=== PATIENT | male | born 1945 | race Caucasian/White ===

== ENCOUNTER 2019-07-26 18:53 | Emergency (ER) | payer MEDICARE, OTHER ==
[~2019-07-26] VITALS: Wt 95.5 kg
[2019-07-26 18:53] VITALS: BP 59/41
[~2019-07-26 18:53] MED LIST: DIOVAN160 MG PO; HCTZ
[2019-07-26 19:20] LABS: BASO # 0.1 (0.0-0.2); BASO % 0.4 % (0.0-2.0); EOS % 0.1 % (0-4.0); GRAN # 10.3 (1.4-6.5); HEMOGLOBIN 16.2 g/dl (13.5-18.0); LYMPH # 2.3 (1.2-3.4); LYMPH % 16.9 % (20.0-51.0); MEAN CELL VOLUME 99 fl (80.0-100.0); MEAN CORPUSCULAR HEMOGLOBIN 31 pg (27.0-31.0); MEAN CORPUSCULAR HGB CONC 31 g/dl (33.0-37.0); MEAN PLATELET VOLUME 11.6 fl (7.4-10.4); MONO # 0.9 (0.1-0.6); MONO % 6.7 % (1.7-9.3); PLATELET COUNT 184 K/mm3 (130-400); RED BLOOD COUNT 5.32 M/mm3 (4.20-5.60); REDCELL DISTRIBUTION WIDTH-CV 16.7 % (11.5-14.5)
[2019-07-26 19:21] LABS: HEMATOCRIT 52.9 % (42.0-52.0)
[2019-07-26 19:23] LABS: INR 1.1 (0.8-3.0); PROTHROMBIN TIME 12.3 SECONDS (9.7-12.8)
[2019-07-26 19:26] LABS: ALANINE AMINOTRANSFERASE 33 U/L (21-72); ALBUMIN 3.9 gm/dL (3.5-5.0); ALKALINE PHOSPHATASE 121 U/L (50-136); ANION GAP 19 mmol/L (7-16); AST,SGOT 48 U/L (15-37); BLOOD UREA NITROGEN 23 mg/dL (9-20); CALCIUM 9.3 mg/dL (8.4-10.2); CHLORIDE 110 mmol/L (98-107); CREATINE KINASE 66 U/L (55-170); CREATININE, serum 1.67 (0.66-1.25); GLUCOSE 178 mg/dL (74-106); LIPASE 58 U/L (23-300); PARTIAL THROMBOPLASTIN TIME 30.3 SECONDS (26.0-37.0); POTASSIUM 3.9 mmol/L (3.4-5.0); SODIUM 143 mmol/L (137-145); TOTAL PROTEIN 7.4 gm/dL (6.4-8.2)
[2019-07-26 19:31] LABS: ALCOHOL(ethanol),MEDICAL < 10 mg/dL; CARBON DIOXIDE 14 mmol/L (22-30)
[2019-07-26 19:38] LABS: TROPONIN-I 0.075 ng/mL (0.000-0.035)
[2019-07-26 19:40] LABS: D-DIMER > 5250.00 ng/mLDDu (200-230)
[2019-07-26 21:56] LABS: ARTERIAL BLD GAS O2 SATURATION 71.9 % (92-100); ARTERIAL BLD GAS TCO2 CT 13.8; ARTERIAL BLOOD GAS BASE EXCESS -17.2 (-2-2); ARTERIAL BLOOD GAS HCO3 12.5 meq/L (22-26); ARTERIAL BLOOD GAS PCO2 43.5 mmHg (35-45); ARTERIAL BLOOD GAS PO2 54.2 mmHg (80-100)
[2019-07-26 21:59] LABS: ARTERIAL BLOOD GAS pH 7.08 (7.35-7.45)
== END 2019-07-26 22:40 | disposition expired ==
LOC: COL.ER 18:53 → EDBD 18:56 → COL.ER 18:56
PROVIDERS: Emergency Medicine
DX: I46.9 Cardiac arrest, cause unspecified (principal)
CPT/HCPCS: J0171; J0282; J0461; J2250; J7030; J7060